=== PATIENT | female | born 1985 | race Caucasian/White ===

== ENCOUNTER 2017-05-22 18:07 | Emergency (ER) | payer SELFPAY ==
[~2017-05-22] VITALS: Wt 66.0 kg
[2017-05-22] MEDS ORDERED: KETOROLAC 60 MG INJ IM STA (19:20)
--- NOTE | 2017-05-22 19:29 | ERD ---
ER Documentation Chief Complaint Date/Time DATE: 05/22/17 TIME: 19:18 Chief Complaint LOW BACK PAIN AFTER WORK INJURY X1 YEAR HPI 31-year-old female who presents emergency department for low back pain started after work. She has history of back injury about a year ago. LMP: Stated that she is on her period right now. A0. Denies headache, dizziness, blurred vision, neck pain, shoulder pain, chest pain , nausea, vomiting, constipation, diarrhea, urinary symptoms, , possibility of being , vaginal bleeding, vaginal discharge, injury, falls, direct trauma, loss of bowel bladder control, numbness or tingling sensation, difficulty walking, fever, chills. No known drug allergies. Past medical history of chronic low back pain secondary to injury. Surgery: Denies. Medication: Not taking any prescription medication at time. 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 Denies smoking, use of alcohol, use of illegal drugs. ROS All systems reviewed and are negative except as per history of present illness. Medications Home Meds Active Scripts Cyclobenzaprine Hcl* (Cyclobenzaprine Hcl*) 10 Mg Tablet, 10 MG PO Q12 Y for MUSCLE SPASMS, #15 TAB Prov:BROCKILABANLONAR F 05/22/17 Ibuprofen* (Motrin*) 800 Mg Tab, 800 MG PO Q6H Y for PAIN AND OR ELEVATED TEMP, #30 TAB Prov:BROCKILABANLONAR F 05/22/17 Allergies Allergies: Coded Allergies: No Known Allergy (Unverified , 05/22/17) Physical Exam Vitals Vital Signs Date Time Temp Pulse Resp B/P Pulse Ox O2 Delivery O2 Flow Rate FiO2 05/22/17 20:26 98.5 71 18 128/68 100 Room Air 05/22/17 18:14 97.6 69 18 120/71 100 Physical Exam Const: [] Head: Atraumatic Eyes: Normal Conjunctiva ENT: Normal External Ears, Nose and Mouth. Neck: Full range of motion..~ No meningismus. Resp: Clear to auscultation bilaterally Cardio: Regular rate and rhythm, no murmurs Abd: Soft, non tender, non distended. Normal bowel sounds Skin: No petechiae or rashes Back: No midline or flank tenderness Ext: No cyanosis, or edema. C-spine/T-spine/L-spine are in midline with good and full range of motion and has no swelling/. bulging/discoloration/point of tenderness. Positive straight leg test bilaterally. Bilateral hips are unremarkable. Bilateral lower extremities are unremarkable. No saddle anesthesia. No numbness or tingling sensation. No signs of trauma or direct trauma. No neurovascular deficits. Neur: Awake and alert x 4. Cranial nerves II through XII intact. Romberg test negative. No neurological deficits. Psych: Normal Mood and Affect Results 24 hrs Current Medications Medications (Trade) Dose Ordered Sig/Suzan Route PRN Reason Start Time Stop Time Status Last Admin Dose Admin Ketorolac Tromethamine (Toradol) 60 mg ONCE STAT IM 05/22/17 19:20 05/22/17 19:21 DC 05/22/17 19:34 Procedures/MDM 31-year-old female who presents emergency department for low back pain started after work. She has history of back injury about a year ago. LMP: Stated that she is on her period right now. A0. Denies headache, dizziness, blurred vision, neck pain, shoulder pain, chest pain , nausea, vomiting, constipation, diarrhea, urinary symptoms, , possibility of being , vaginal bleeding, vaginal discharge, injury, falls, direct trauma, loss of bowel bladder control, numbness or tingling sensation, difficulty walking, fever, chills. No known drug allergies. Past medical history of chronic low back pain secondary to injury. Surgery: Denies. Medication: Not taking any prescription medication at time. 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 Denies smoking, use of alcohol, use of illegal drugs. Physical exam: C-spine/T-spine/L-spine are in midline with good and full range of motion and has no swelling/. bulging/discoloration/point of tenderness. Positive straight leg test bilaterally. Bilateral hips are unremarkable. Bilateral lower extremities are unremarkable. No saddle anesthesia. No numbness or tingling sensation. No signs of trauma or direct trauma. No neurovascular deficits. No neurological deficits. Process was explained to the patient. She verbalized understanding and agreed with the treatment and plan of care. POC : Negative. Treatment: Toradol IM. Reevaluation: Denies headache, dizziness, blurred vision, neck pain, shoulder pain, chest pain, back pain, abdominal pain, nausea, vomiting. No episode of emesis in the emergency department. No abdominal tenderness. Ambulatory with steady gait. No neurological deficits. No saddle anesthesia. No neurovascular deficits. Stated that she feels much better this time and is ready to go home. Differential diagnosis: Spinal fracture versus contusion versus back strain versus sciatica Final diagnosis: Sciatica Prescription: Motrin. Flexeril. Follow-up with primary care physician the next 24-48 hours. Come back to emergency department for any new symptoms or any worsening of symptoms. All questions and concerns are answered. Patient verbalized understanding and agreed with the plan of care. Hemodynamically stable on discharge. Departure Diagnosis: Primary Impression: Back pain Additional Impression: Sciatica Condition: Stable Additional Instructions: Follow-up with primary care physician the next 24-48 hours. Come back to emergency department for any new symptoms or any worsening of symptoms. All questions and concerns are answered. Patient verbalized understanding and agreed with the plan of care. BRIDGETT PEREZ May 22, 2017 19:29
[2017-05-22] MEDS ORDERED: IBUP800T25 PO (20:08)
[2017-05-22] MEDS ORDERED: CYCL-319 PO (20:09)
[2017-05-22 20:26] VITALS: BP 128/68; PULSE 71; RESP 18; TEMP 98.5
== END 2017-05-22 20:29 | disposition home or self-care (01) ==
LOC: FTE 18:07
DX: M54.40 Lumbago with sciatica, unspecified side (principal)
CPT/HCPCS: 96372; 99284; J1885